=== PATIENT | female | born 1945 | race Caucasian/White ===

== ENCOUNTER 2025-04-05 14:37 | Emergency (ER) | payer OTHER, SELFPAY ==
[2025-04-05 15:54] LABS: INR-International Normal Ratio 1.1; PTT 28.2 sec (22.0-33.0); Prothrombin Time 11.5 sec (9.5-12.1)
[2025-04-05 15:59] LABS: ALT (SGPT) 44 U/L (Less than 34); AST (SGOT) 66 U/L (11-34); Albumin 3.1 g/dL (3.1-4.5); Alkaline Phosphatase 143 U/L (40-110); Anion Gap 14 mmol/L (10-20); BUN (Urea Nitrogen) 15 mg/dL (9.8-20.1); Bilirubin, Total 1.1 mg/dL (0.3-1.2); Calc. Creatinine Clearance 0 mL/min (70-130); Calcium 8.7 mg/dL (7.8-10.44); Carbon Dioxide 21 mmol/L (23-31); Chloride 107 mmol/L (98-107); Globulin 4.0 g/dL (2.4-3.5); Glucose 128 mg/dL (83-110); Potassium 4.1 mmol/L (3.5-5.1); Sodium 138 mmol/L (136-145)
[2025-04-05 16:04] LABS: #Basophils Less than 0.03 10x3/uL (0.0-0.2); #Eosinophils 0.10 10x3/uL (0.0-0.5); #Monocytes 0.42 10x3/uL (0.0-1.1); #Neutrophils 2.84 10x3/uL (1.5-8.4); %Basophils 0.3 % (0.0-2.0); %Eosinophils 2.5 % (0.0-6.0); %Lymphocytes 14.6 % (18.0-47.0); %Monocytes 10.6 % (0.0-10.0); %Neutrophils 71.7 % (40.0-75.0); Hematocrit 32.2 % (34.9-44.5); Hemoglobin 10.3 g/dL (12.0-15.5); Mean Corpuscular Hemoglobin 28.1 pg (27.0-33.0); Mean Corpuscular Volume 88.0 fL (81.6-98.3); Red Blood Cell (RBC) Count 3.66 10x6/uL (3.90-5.03); White Blood Cell (WBC) Count 3.96 10x3/uL (3.5-10.5)
[2025-04-05 16:08] LABS: Platelet Count 90 10x3/uL (130-400)
[2025-04-05 17:30] LABS: Troponin I Less than 0.010 ng/mL (< 0.028)
[2025-04-05 17:49] LABS: Glucose, Urine (Dipstick) Normal (Negative); Leukocyte Negative (Negative); Protein, Urine (Dipstick) 30 mg/dl (Neg-Trace); Specific Gravity, Urine 1.005 (1.005-1.030)
[2025-04-05 18:26] LABS: Bacteria/HPF 2+ HPF (None Seen); CAUTI Indications for Culture Pelvic or flank pain; RBC/HPF 0-3 HPF (0-3); Urine Culture Reflex No No; WBC/HPF 0-3 HPF (0-3)
[2025-04-05 18:54] LABS: Platelet Adequacy Comment Appears Decreased
== END 2025-04-05 18:56 | disposition home or self-care (01) ==
LOC: CSHERS 14:37
DX: R42 Dizziness and giddiness (principal); N39.0 Urinary tract infection, site not specified; R29.700 NIHSS score 0; I10 Essential (primary) hypertension
CPT/HCPCS: 70496; 70498; 71045; 80053; 81001; 83880; 84484; 85025; 85610; 85730; 93005; 94760